=== PATIENT | female | born 1985 | race Caucasian/White ===

== ENCOUNTER 2017-10-15 17:37 | Emergency (ER) | payer OTHER ==
[~2017-10-15] VITALS: Ht 172.7 cm; Wt 63.5 kg
[~2017-10-15 17:37] MED LIST: AUGMENTIN GT; MULTI FOR HER1 EACH PO; PERCOCET 5-3251 EACH PO; PHENERGAN 25 MG25 MG PO; REGLAN 10 MG TA10 M1 PO; TORADOL 10 MG T10 MG PO; ZPAK PO
[2017-10-15 17:58] LABS: URINE BILIRUBIN NEGATIVE (Negative); URINE BLOOD 1+ (Negative); URINE CLARITY CLOUDY; URINE COLOR YELLOW; URINE GLUCOSE-RANDOM NEGATIVE (Negative); URINE KETONES NEGATIVE (Negative); URINE NITRITE-REFLEX NEGATIVE (Negative); URINE PROTEIN TRACE (Negative); URINE SPECIFIC GRAVITY 1.015 (1.005-1.030); URINE UROBILINOGEN 0.2 E.U./dl (0.2-1.0)
[2017-10-15 17:59] LABS: URINE LEUKOCYTES-REFLEX 3+ (Negative)
[2017-10-15 18:07] LABS: MUCUS 0-3 Light strn/LPF (None Seen); SQUAMOUS >10 Many /LPF (0-3); URINE WBC-REFLEX >25 Many /HPF (0-5); WBC CLUMPS Many (None Seen)
[2017-10-15 18:08] LABS: CASTS None Seen /LPF (None Seen); URINE RBC 3-10 Few /HPF (0-2)
[2017-10-15 18:09] LABS: CRYSTALS None Seen /LPF (None Seen)
[2017-10-15] MEDS ORDERED: CIPRO500 MG PO (18:14)
[2017-10-15 18:44] VITALS: BP 108/56
== END 2017-10-15 18:53 | disposition home or self-care (01) ==
LOC: M.ERS 17:37
PROVIDERS: Physician Assistant
DX: N39.0 Urinary tract infection, site not specified (principal)

== ENCOUNTER 2017-10-18 21:49 | Emergency (ER) | payer OTHER ==
[~2017-10-18] VITALS: Ht 172.7 cm; Wt 63.5 kg
[~2017-10-18 21:49] MED LIST changes: +CIPRO500 MG PO
[2017-10-18 22:30] VITALS: BP 129/81
== END 2017-10-18 22:30 | disposition home or self-care (01) ==
LOC: M.ERS 21:49
DX: R05 Cough (principal); J45.909 Unspecified asthma, uncomplicated; F17.210 Nicotine dependence, cigarettes, uncomplicated

== ENCOUNTER 2017-11-25 13:31 | Emergency (ER) | payer OTHER ==
[~2017-11-25] VITALS: Ht 172.7 cm; Wt 65.8 kg
[2017-11-25 13:55] LABS: ABSOLUTE BASOPHILS 0.1 thou/uL (0.0-0.2); ABSOLUTE EOSINOPHILS 0.1 thou/uL (0.0-0.7); ABSOLUTE LYMPHOCYTES 2.5 thou/uL (0.8-5.3); ABSOLUTE MONOCYTES 0.9 thou/uL (0.0-1.2); ABSOLUTE NEUTROPHILS 5.3 thou/uL (1.6-8.1); BASOPHILS 0.6 %; EOSINOPHILS 1.6 %; HEMATOCRIT 34.6 % (37.0-47.0); HEMOGLOBIN 11.3 gm/dL (12.0-15.0); LYMPHOCYTES 27.9 %; MCH 24.8 pg (26.0-34.0); MCHC 32.6 g/dL (28.0-37.0); MCV 76.2 fL (80.0-100.0); MONOCYTES 9.9 %; MPV 7.8 fl. (7.2-11.1); NUCLEATED RBCS 0 /100WBC; PLATELET COUNT* 392 thou/uL (150-400); RBC 4.54 mil/uL (4.20-5.00); RDW-CV 15.7 % (10.5-14.5); WBC 8.8 thou/uL (4.0-11.0)
[2017-11-25 14:01] LABS: URINE BILIRUBIN NEGATIVE (Negative); URINE BLOOD 3+ (Negative); URINE CLARITY CLEAR; URINE COLOR YELLOW; URINE GLUCOSE-RANDOM NEGATIVE (Negative); URINE KETONES 1+ (Negative); URINE NITRITE-REFLEX NEGATIVE (Negative); URINE PROTEIN NEGATIVE (Negative); URINE SPECIFIC GRAVITY 1.025 (1.005-1.030); URINE UROBILINOGEN 0.2 E.U./dl (0.2-1.0)
[2017-11-25 14:02] LABS: CALCIUM 9.3 mg/dL (8.5-10.1); CREATININE 0.7 mg/dL (0.6-1.3); POTASSIUM 4.5 mmol/L (3.5-5.1)
[2017-11-25 14:06] LABS: ALBUMIN 3.4 g/dL (3.4-5.0); TOTAL BILIRUBIN 0.5 mg/dL (<0.1-1.0); TOTAL PROTEIN 7.3 g/dL (6.4-8.2)
[2017-11-25 14:14] LABS: URINE LEUKOCYTES-REFLEX 2+ (Negative)
[2017-11-25 14:15] LABS: CASTS None Seen /LPF (None Seen); CRYSTALS None Seen /LPF (None Seen); SQUAMOUS >10 Many /LPF (0-3); URINE RBC 3-10 Few /HPF (0-2); URINE WBC-REFLEX 6-15 Few /HPF (0-5)
[2017-11-25] MEDS ORDERED: BACTRIM DS TAB1 EAC1 PO (14:52)
[2017-11-25 15:00] VITALS: BP 144/45
== END 2017-11-25 15:01 | disposition home or self-care (01) ==
LOC: M.ERS 13:31
PROVIDERS: Nurse Practitioner Family
DX: N39.0 Urinary tract infection, site not specified (principal); J45.909 Unspecified asthma, uncomplicated; F17.210 Nicotine dependence, cigarettes, uncomplicated

== ENCOUNTER 2019-11-09 21:13 | Emergency (ER) | payer OTHER ==
[~2019-11-09] VITALS: Ht 172.7 cm; Wt 72.6 kg
[~2019-11-09 21:13] MED LIST changes: +BACTRIM DS TAB1 EAC1 PO
[2019-11-09 23:05] VITALS: BP 137/63
== END 2019-11-09 23:07 | disposition left against medical advice (07) ==
LOC: M.ERS 21:13
DX: Z53.21 Procedure and treatment not carried out due to patient leaving prior to being seen by health care provider (principal)